=== PATIENT | male | born 1965 | race Hispanic/Latino ===

== ENCOUNTER 2016-08-28 12:03 | Emergency (ER) | payer OTHER ==
[~2016-08-28] VITALS: Ht 160 cm; Wt 69.3 kg
[~2016-08-28 12:03] MED LIST: KEFLEX500 MG PO; NOHOMEMEDS
[2016-08-28] MEDS ORDERED: FLEXERIL10 MG PO (13:43)
[2016-08-28] MEDS ORDERED: PREDNISONE10 MG PO (13:43)
[2016-08-28 13:52] VITALS: BP 113/79
== END 2016-08-28 13:53 | disposition home or self-care (01) ==
LOC: EME 12:03
DX: S43.401A Unspecified sprain of right shoulder joint, initial encounter (principal)
CPT/HCPCS: 99281; 99284

== ENCOUNTER 2016-09-24 11:09 | Emergency (ER) | payer OTHER ==
[~2016-09-24] VITALS: Ht 162.6 cm; Wt 71.3 kg
[~2016-09-24 11:09] MED LIST changes: +FLEXERIL10 MG PO; +PREDNISONE10 MG PO
[2016-09-24] MEDS ORDERED: NAPROSYN500 MG PO (12:26)
[2016-09-24] MEDS ORDERED: FLEXERIL10 MG PO (12:26)
[2016-09-24 12:38] VITALS: BP 110/64
== END 2016-09-24 12:40 | disposition home or self-care (01) ==
LOC: EXP 11:09 → EME 11:09 → EXP 12:40
DX: S39.012A Strain of muscle, fascia and tendon of lower back, initial encounter (principal); X50.0XXA Overexertion from strenuous movement or load, initial encounter; Y93.89 Activity, other specified; Y99.0 Civilian activity done for income or pay
CPT/HCPCS: 72100; 99281; 99284